=== PATIENT | female | born 1970 | race Caucasian/White ===

== ENCOUNTER → 2016-05-29 | Outpatient (CLI) | payer BC ==
[2016-05-29 09:48] LABS: EKG EKG PERFORMED
[2016-05-29 10:19] LABS: Basophils % (A) 1 %; CH 30.4; CHCM 32.6; Eosinophils # (A) 0.1 k/uL (0-0.7); Eosinophils % (A) 2 %; HCT 45.1 % (34.0-46.0); HDW 2.26; HGB 14.3 gm/dL (11.4-16.0); Luc % (Auto) 2; Lymphocytes # (A) 1.2 k/uL (1.0-4.8); Lymphocytes % (A) 22 %; MCH 29.7 pg (25.0-35.0); MCHC 31.7 g/dL (31.0-37.0); MCV 93.8 fL (80.0-100.0); Mean Platelet Volume 7.1; Monocytes # (A) 0.3 k/uL (0-1.0); Monocytes % (A) 6 %; Neutrophils # (A) 3.8 k/uL (1.3-7.7); Neutrophils % (A) 68 %; RBC 4.81 m/uL (3.80-5.40); RDW 12.7 % (11.5-15.5); WBC 5.6 k/uL (3.8-10.6); WBC (Perox) 5.86
[2016-05-29 11:52] LABS: ALT 46 U/L (9-52); AST 26 U/L (14-36); Alkaline Phosphatase 55 U/L (38-126); Anion Gap 12 mmol/L; Blood Urea Nitrogen 15 mg/dL (7-17); C Reactive Protein <5.0 mg/L (<10.0); Calcium 9.6 mg/dL (8.4-10.2); Carbon Dioxide 23 mmol/L (22-30); Chloride 107 mmol/L (98-107); Glucose 97 mg/dL (74-99); Non-African American GFR(MDRD) >60 (>60 ml/min/1.73 sqM); Potassium 4.3 mmol/L (3.5-5.1); Sodium 142 mmol/L (137-145); Total Bilirubin 1.9 mg/dL (0.2-1.3); Total Protein 7.8 g/dL (6.3-8.2)
[2016-05-29 12:22] LABS: Estradiol 61 pg/mL
--- NOTE | 2016-05-29 15:34 | XR ---
EXAMINATION TYPE: XR chest 2V DATE OF EXAM: 05/29/2016 10:13 AM COMPARISON: None HISTORY: 46-year-old female chest pressure for 2 weeks, hypertension TECHNIQUE: Frontal and lateral views FINDINGS: The cardiomediastinal silhouette, aorta, and pulmonary vasculature are within normal limits. Lungs an d pleural spaces are clear. IMPRESSION: No acute cardiopulmonary process.
== END | disposition home or self-care (01) ==
LOC: LABWHC1 09:23
PROVIDERS: ATTEND Internal Medicine
DX: I10 Essential (primary) hypertension (principal); R53.83 Other fatigue
CPT/HCPCS: 36415; 71020; 80053; 82670; 83001; 83002; 84439; 84443; 84481; 85025; 86140; 93005

== ENCOUNTER → 2016-08-31 | Outpatient (CLI) | payer BC ==
[2016-08-31 08:43] LABS: ALT 49 U/L (9-52); AST 32 U/L (14-36); Alkaline Phosphatase 45 U/L (38-126); Anion Gap 12 mmol/L; Blood Urea Nitrogen 16 mg/dL (7-17); Calcium 10.3 mg/dL (8.4-10.2); Carbon Dioxide 23 mmol/L (22-30); Chloride 107 mmol/L (98-107); Cholesterol 193 mg/dL (<200); Glucose 90 mg/dL (74-99); HDL Cholesterol 75 mg/dL (40-60); Non-African American GFR(MDRD) >60 (>60 ml/min/1.73 sqM); Potassium 4.2 mmol/L (3.5-5.1); Sodium 142 mmol/L (137-145); Total Protein 7.7 g/dL (6.3-8.2); Triglycerides 118 mg/dL (<150)
[2016-08-31 08:56] LABS: Basophils % (A) 1 %; CH 30.8; CHCM 32.8; Eosinophils # (A) 0.2 k/uL (0-0.7); Eosinophils % (A) 2 %; HCT 46.6 % (34.0-46.0); HDW 2.19; Luc # (Auto) 0.11; Luc % (Auto) 2; Lymphocytes # (A) 1.6 k/uL (1.0-4.8); Lymphocytes % (A) 24 %; MCH 30.4 pg (25.0-35.0); MCHC 32.2 g/dL (31.0-37.0); MCV 94.4 fL (80.0-100.0); Monocytes # (A) 0.4 k/uL (0-1.0); Monocytes % (A) 5 %; Neutrophils # (A) 4.6 k/uL (1.3-7.7); Neutrophils % (A) 67 %; RBC 4.94 m/uL (3.80-5.40); RDW 12.9 % (11.5-15.5); WBC 6.9 k/uL (3.8-10.6)
== END | disposition home or self-care (01) ==
LOC: LABWHC1 07:44
PROVIDERS: ATTEND Internal Medicine
DX: Z00.00 Encounter for general adult medical examination without abnormal findings (principal); E78.2 Mixed hyperlipidemia; I10 Essential (primary) hypertension; E55.9 Vitamin D deficiency, unspecified
CPT/HCPCS: 36415; 80053; 80061; 82306; 85025

== ENCOUNTER → 2017-04-18 | Outpatient (CLI) | payer BC, OTHER ==
--- NOTE | 2017-04-19 08:51 | MR ---
EXAMINATION TYPE: MR brain wo/w DATE OF EXAM: 04/18/2017 COMPARISON: NONE HISTORY: Parasthesia of skin TECHNIQUE: Multiplanar, multisequence images of the brain and brainstem is performed without and with IV contras t, utilizing 7.5 mL intravenous Gadavist . FINDINGS: Diffusion weighted images demonstrate no evidence of a recent infarct or other diffusion ab normality. There is no extra-axial fluid collection or significant white matter signal abnormality. The ventricular system and cisternal spaces are normal in size and appearance. The brain volume is age appropriate. Midline structures demonstrate normal morphology. The craniocervical junction appears within normal limits. Post contrast images demonstrate no abnormal enhancement. The dural venous sinuses appear pa tent. WHITE MATTER: A single punctate area of abnormal signal measuring 1 mm within the left parietal white matter. This is of doubtful significance. No enhancing lesions. No callosal lesions. No lesions perpendicular to the ventricular system. Incidental note made of a tiny venous angioma left temporal lobe. IMPRESSION: 1. No definite acute process. Single 1 mm area of abnormal signal within the white matter of the left parietal lobe of questionable significance. EXAMINATION TYPE: MR cspine wo/w DATE OF EXAM: 04/18/2017 COMPARISON: NONE HISTORY: Parasthesia of skin Contrast: 7.5 mL Gadavist TECHNIQUE: T1 sagittal and coronal, T2 sagittal, and gradient echo axial views of the cervical spine are submitted. FINDINGS: The cranial cervical junction is preserved. There is no abnormal signal seen within the sp inal cord or paraspinal soft tissues. At C2-3 there is no disc herniation or canal stenosis. Neural foramina patent. At C3-4 there is no disc herniation or canal stenosis. Neural foramina patent. At C4-5 there is no disc herniation or canal stenosis. Neural foramina patent. At C5-6 there is moderate degenerative disc disease. There is a broad-based subligamentous disc herni ation slightly greater paracentrally to left resulting in mild anterior indentation spinal cord and m ild compression. Mild bilateral foraminal encroachment and uncovertebral joint hypertrophy. At C6-7 there is no disc herniation or canal stenosis. No foraminal encroachment. At C7-T1 there is no disc herniation or canal stenosis. No foraminal encroachment. IMPRESSION: 1. At C5-6 there is moderate degenerative disc disease. There is a broad-based subligamentous disc h erniation slightly greater paracentrally to left resulting in mild anterior indentation of the spinal cord and mild compression. Mild bilateral foraminal encroachment and uncovertebral joint hypertrophy . Report called to physician's office.
== END | disposition home or self-care (01) ==
LOC: RADMRIMAIN 19:28
PROVIDERS: ATTEND Nurse Practitioner Acute Care
DX: M50.20 Other cervical disc displacement, unspecified cervical region (principal); M50.322 Other cervical disc degeneration at C5-C6 level; R94.02 Abnormal brain scan
CPT/HCPCS: 70553; 72156; A9581

== ENCOUNTER → 2018-06-17 | Outpatient (CLI) | payer OTHER ==
--- NOTE | 2018-06-17 23:44 | MR ---
EXAMINATION TYPE: MR shoulder LT wo con DATE OF EXAM: 06/17/2018 COMPARISON: None HISTORY: Lt shoulder pain, limited ROM x 4 weeks TECHNIQUE: Multiplanar, multisequence imaging of the left shoulder is performed without contrast. FINDINGS: The subscapularis tendon is intact. Glenoid miguel appear intact. Biceps tendon is intact. The suprasp inatus tendon is intact. There is no retraction. There is minor spurring at the AC joint. I see no fr acture. There is no bony destructive process. The glenoid miguel appear intact. IMPRESSION: No evidence of rotator cuff tear. There is minor spurring at the AC joint and minimal subacromial imp ingement.
== END | disposition home or self-care (01) ==
LOC: RADMRIMAIN 20:48
PROVIDERS: ATTEND Nurse Practitioner Adult Health
DX: M25.812 Other specified joint disorders, left shoulder (principal); M75.82 Other shoulder lesions, left shoulder

== ENCOUNTER → 2019-01-03 | Outpatient (CLI) | payer OTHER ==
[2019-01-03 10:30] LABS: Basophils # (A) 0.1 k/uL (0-0.2); Basophils % (A) 1 %; Eosinophils # (A) 0.4 k/uL (0-0.7); Eosinophils % (A) 6 %; HCT 45.1 % (34.0-46.0); HGB 14.9 gm/dL (11.4-16.0); Lymphocytes # (A) 1.9 k/uL (1.0-4.8); Lymphocytes % (A) 29 %; MCH 30.7 pg (25.0-35.0); MCHC 33.1 g/dL (31.0-37.0); MCV 92.8 fL (80.0-100.0); Mean Platelet Volume 7.3; Monocytes # (A) 0.4 k/uL (0-1.0); Monocytes % (A) 6 %; Neutrophils # (A) 3.8 k/uL (1.3-7.7); Neutrophils % (A) 57 %; Platelet Count 251 k/uL (150-450); RBC 4.86 m/uL (3.80-5.40); RDW 14.3 % (11.5-15.5); WBC 6.6 k/uL (3.8-10.6)
[2019-01-03 16:31] LABS: Vitamin D 25 Hydroxy 20.2 ng/mL (30.0-100.0)
[2019-01-03 16:40] LABS: African American GFR (CKD) 100.3 (60.0-200.0); Albumin 4.5 g/dL (3.80-4.90); Albumin/Globulin Ratio 2.37 (1.60-3.17); Anion Gap 9.4 mmol/L (4.00-12.00); BUN/Creat Ratio 17.5 Ratio (12.00-20.00); Calcium 9.5 mg/dL (8.7-10.3); Carbon Dioxide 21.6 mmol/L (21.6-31.8); Chol/HDL Ratio 3.97; Globulin 1.9 g/dL (1.6-3.3); LDL Cholesterol,Calculated 173.2 mg/dL (0.0-131.0); Magnesium 1.9 mg/dL (1.5-2.4); Potassium 4.4 mmol/L (3.5-5.5); Total Bilirubin 1.2 mg/dL (0.3-1.2); Total Protein 6.4 g/dL (6.2-8.2); VLDL Calculation 28.8 mg/dL (5.00-40.00)
== END | disposition home or self-care (01) ==
LOC: LABWHC1 08:21
PROVIDERS: ATTEND Nurse Practitioner Adult Health
DX: Z00.00 Encounter for general adult medical examination without abnormal findings (principal); E55.9 Vitamin D deficiency, unspecified; M85.9 Disorder of bone density and structure, unspecified; E78.5 Hyperlipidemia, unspecified; R53.83 Other fatigue
CPT/HCPCS: 36415; 80053; 80061; 82306; 82607; 83540; 83550; 83735; 84443; 85025

== ENCOUNTER → 2019-04-22 | Outpatient (CLI) | payer OTHER ==
--- NOTE | 2019-04-25 11:56 | MM ---
Reason for exam: screening (asymptomatic). Last mammogram was performed 5 years and 2 months ago. History: Took hormonal contraceptives for 5 years. Physical Findings: A clinical breast exam by your physician is recommended on an annual basis and results should be correlated with mammographic findings. MG Screening Mammo w CAD Bilateral CC and MLO view(s) were taken. Prior study comparison: March 05, 2014, bilateral MG screening mammo w CAD. January 17, 2011, bilateral digital screening mammo w/CAD. The breast tissue is heterogeneously dense. This may lower the sensitivity of mammography. There is no discrete abnormality. ASSESSMENT: Negative, BI-RAD 1 RECOMMENDATION: Routine screening mammogram of both breasts in 1 year.
== END ==
LOC: RADMAMWWP 08:26
PROVIDERS: ATTEND Internal Medicine
DX: Z12.31 Encounter for screening mammogram for malignant neoplasm of breast (principal)
CPT/HCPCS: 77067